=== PATIENT | male | born 1960 | race Caucasian/White ===

== ENCOUNTER → 2021-01-31 | Outpatient (CLI) | payer OTHER ==
[2021-02-02 08:13] LABS: THYROXINE (T4) 9.5 ug/dL (4.5-12.0)
== END ==
LOC: LAB 17:23
PROVIDERS: Nurse Practitioner
DX: E05.90 Thyrotoxicosis, unspecified without thyrotoxic crisis or storm (principal); R73.9 Hyperglycemia, unspecified
CPT/HCPCS: 36415; 83036; 84436; 84443; 84480

== ENCOUNTER 2021-02-15 07:31 | Inpatient (IN) | payer OTHER ==
[~2021-02-15] VITALS: Ht 175.3 cm; Wt 77.1 kg
[2021-02-15 08:06] LABS: HEMOGLOBIN 13.8 gm/dl (14.0-17.5); RED BLOOD COUNT 4.57 M/UL (4.20-5.50); WHITE BLOOD COUNT 20.2 K/UL (4.5-11.0)
[2021-02-15 08:23] LABS: BUN/CREATININE RATIO 18 (0-10)
[2021-02-15] MEDS ORDERED: AMLODIPINE BESY10 MG PO (10:21)
[2021-02-15] MEDS ORDERED: MONTELUKAST SOD10 MG PO (10:21)
[2021-02-15] MEDS ORDERED: ATORVASTATIN CA20 MG PO (10:21)
[2021-02-15] MEDS ORDERED: CLARITIN10 MG PO (10:22)
[2021-02-15] MEDS ORDERED: MULTIVITAMIN1 EACH PO (10:22)
[2021-02-16 07:48] LABS: BUN/CREATININE RATIO 20 (0-10); HEMOGLOBIN 12.4 gm/dl (14.0-17.5); RED BLOOD COUNT 4.23 M/UL (4.20-5.50); WHITE BLOOD COUNT 18.7 K/UL (4.5-11.0)
[2021-02-17 08:12] LABS: HEMOGLOBIN 12.1 gm/dl (14.0-17.5); RED BLOOD COUNT 4.16 M/UL (4.20-5.50)
[2021-02-17 09:49] LABS: BUN/CREATININE RATIO 14 (0-10)
[2021-02-18 07:11] LABS: HEMOGLOBIN 12.3 gm/dl (14.0-17.5); RED BLOOD COUNT 4.15 M/UL (4.20-5.50)
[2021-02-18 07:31] LABS: BUN/CREATININE RATIO 13 (0-10)
[2021-02-19 07:00] LABS: HEMOGLOBIN 11.8 gm/dl (14.0-17.5); RED BLOOD COUNT 4.14 M/UL (4.20-5.50); WHITE BLOOD COUNT 8.9 K/UL (4.5-11.0)
[2021-02-19 07:11] LABS: BUN/CREATININE RATIO 14 (0-10)
[2021-02-20 06:09] LABS: HEMOGLOBIN 11.8 gm/dl (14.0-17.5); WHITE BLOOD COUNT 8.8 K/UL (4.5-11.0)
[2021-02-20 07:04] LABS: BUN/CREATININE RATIO 16 (0-10)
[2021-02-20] MEDS ORDERED: METRONIDAZOLE250 MG PO (10:01)
[2021-02-20] MEDS ORDERED: LEVOFLOXACIN500 MG PO (10:01)
[2021-02-20] MEDS ORDERED: FLOMAX 0.4 MG0.4 MG PO (10:01)
[2021-02-20 10:09] LABS: HEMOGLOBIN 11.5 gm/dl (14.0-17.5); RED BLOOD COUNT 4.01 M/UL (4.20-5.50); WHITE BLOOD COUNT 8.7 K/UL (4.5-11.0)
[2021-02-20] MEDS ORDERED: PERCOCET 5/325 T1 EA PO (16:26)
== END 2021-02-20 15:07 | disposition home or self-care (01) | DRG 392 ==
LOC: ER1 07:31 → M/S 10:40 → CDU 10:40 → M/S 12:33
PROVIDERS: Physician Assistant; Physician Assistant Medical; ADMIT Internal Medicine
DX: K57.32 Diverticulitis of large intestine without perforation or abscess without bleeding (principal); N13.2 Hydronephrosis with renal and ureteral calculous obstruction; Z20.822 Contact with and (suspected) exposure to COVID-19; K83.8 Other specified diseases of biliary tract; J44.9 Chronic obstructive pulmonary disease, unspecified; K59.00 Constipation, unspecified; E87.6 Hypokalemia; F17.210 Nicotine dependence, cigarettes, uncomplicated; J45.909 Unspecified asthma, uncomplicated; I10 Essential (primary) hypertension; Z90.49 Acquired absence of other specified parts of digestive tract; Z88.0 Allergy status to penicillin; Z83.3 Family history of diabetes mellitus; Z98.890 Other specified postprocedural states; Z80.1 Family history of malignant neoplasm of trachea, bronchus and lung; Z80.0 Family history of malignant neoplasm of digestive organs
CPT/HCPCS: 36415; 74181; 80048; 80053; 83605; 83735; 84132; 85025; 85027; 87040; 96374; 96375; 99285; C9113; J1335; J1650; J1956; J2270; J2405; Q9967; U0002

== ENCOUNTER → 2021-04-29 | Day surgery (SDC) | payer BC ==
[~2021-04-29] MED LIST: ALEVE220 M1 PO; AMLODIPINE BESY10 MG PO; ATORVASTATIN CA20 MG PO; CLARITIN10 MG PO; FLOMAX 0.4 MG0.4 MG PO; LEVOFLOXACIN500 MG PO; METRONIDAZOLE250 MG PO; MONTELUKAST SOD10 MG PO; MULTIVITAMIN1 EACH PO; PERCOCET 5/325 T1 EA PO
== END | disposition home or self-care (01) ==
LOC: OR 06:19
DX: K59.00 Constipation, unspecified (principal); D12.4 Benign neoplasm of descending colon; N40.0 Benign prostatic hyperplasia without lower urinary tract symptoms; K57.30 Diverticulosis of large intestine without perforation or abscess without bleeding; K56.2 Volvulus; M19.90 Unspecified osteoarthritis, unspecified site; J45.909 Unspecified asthma, uncomplicated; I10 Essential (primary) hypertension; J44.9 Chronic obstructive pulmonary disease, unspecified; F17.200 Nicotine dependence, unspecified, uncomplicated; Z86.010 Personal history of colon polyps; Z88.0 Allergy status to penicillin; Z72.89 Other problems related to lifestyle
CPT/HCPCS: J2704; J7120

== ENCOUNTER → 2021-12-19 | Outpatient (CLI) | payer BC | LOC: CT 09:07 | DX: K56.699 Other intestinal obstruction unspecified as to partial versus complete obstruction (principal) | CPT/HCPCS: 36415; 82565; 84520; Q9967 ==